=== PATIENT | male | born 1970 | race Caucasian/White ===

== ENCOUNTER 2023-08-01 10:41 | Day surgery (SDC) | payer MEDICARE, MEDICAID ==
[~2023-08-01 10:41] MED LIST: Lactated Ringers 1,000 ML IV SCH
[2023-08-01] MEDS ORDERED: fentaNYL 100 MCG/2 ML SDV ONE (11:31)
[2023-08-01] MEDS ORDERED: Propofol 200 MG/20 ML SDV ONE ×3 (11:31→12:42)
[2023-08-01 13:36] VITALS: BP 130/101; PULSE 76
== END 2023-08-01 14:20 | disposition home or self-care (01) ==
LOC: VM.SDS 10:41
PROVIDERS: ATTEND Surgery
DX: Z12.11 Encounter for screening for malignant neoplasm of colon (principal); D12.6 Benign neoplasm of colon, unspecified; K63.5 Polyp of colon; F41.1 Generalized anxiety disorder; F33.40 Major depressive disorder, recurrent, in remission, unspecified; E78.1 Pure hyperglyceridemia; D32.9 Benign neoplasm of meninges, unspecified; F15.10 Other stimulant abuse, uncomplicated; F63.9 Impulse disorder, unspecified; E66.9 Obesity, unspecified; Z68.32 Body mass index [BMI] 32.0-32.9, adult; Z79.899 Other long term (current) drug therapy
CPT/HCPCS: 00811; 88305; J2704; J3010; J7120